=== PATIENT | female | born 1985 | race Caucasian/White ===

== ENCOUNTER 2017-09-17 07:55 | Emergency (ER) | payer OTHER ==
[2017-09-17 08:05] VITALS: RESP 18
[2017-09-17] MEDS ORDERED: Albuterol 0.083% Inhal Sol (2.5 mg/3 mL) UD INH STA (08:36)
--- NOTE | 2017-09-17 08:39 | ED PDOC ---
Arrival/HPI - General Chief Complaint: Flu-like Symptoms Time Seen by Provider: 09/17/17 08:09 Historian: Patient - History of Present Illness Narrative History of Present Illness (Text): 09/17/17 08:30 Ghassan Luna is a 31 year old female, who presents to the emergency department complaining of coughing and throat pain since three days ago. Patient denies chest pain, headache, fever, chills, back pain, nausea, vomiting, diarrhea, abdominal pain, lower extremity pain/swelling, recent travel, or other complaints. Time/Duration: < week Symptom Onset: Gradual Symptom Course: Worsening Past Medical History - Provider Review Nursing Documentation Reviewed: Yes - Infectious Disease Hx of Infectious Diseases: None - Psychiatric Hx Substance Use: No Family/Social History - Physician Review Nursing Documentation Reviewed: Yes Family/Social History: Unknown Family HX Smoking Status: Never Smoked Hx Alcohol Use: No Hx Substance Use: No Allergies/Home Meds Allergies/Adverse Reactions: Allergies No Known Allergies Allergy (Verified 09/17/17 08:03) Review of Systems - Physician Review All systems were reviewed & negative as marked: Yes - Review of Systems ENT: Sore Throat Respiratory: Cough, Sputum Cardiovascular: absent: Chest Pain Gastrointestinal: absent: Abdominal Pain Physical Exam Vital Signs Reviewed: Yes Vital Signs Temp Pulse Resp BP Pulse Ox 09/17/17 08:04 99.5 F 101 H 18 118/74 100 Temperature: Afebrile Pulse: Tachycardic Respiratory Rate: Normal Appearance: Positive for: Well-Appearing, Non-Toxic, Comfortable Pain Distress: None Mental Status: Positive for: Alert and Oriented X 3 - Systems Exam Head: Present: Atraumatic, Normocephalic Pupils: Present: PERRL Extroacular Muscles: Present: EOMI Conjunctiva: Present: Normal Mouth: Present: Moist Mucous Membranes Pharnyx: No: EXUDATE Nose (Internal): Present: Other (post nasal drip) Neck: Present: Normal Range of Motion Respiratory/Chest: Present: Good Air Exchange, Other (congested on left side). No: Clear to Auscultation, Respiratory Distress, Accessory Muscle Use Cardiovascular: Present: Regular Rate and Rhythm, Normal S1, S2. No: Murmurs Abdomen: Present: Normal Bowel Sounds. No: Tenderness, Distention, Peritoneal Signs, Rebound, Guarding Lower Extremity: Present: Normal Inspection, NORMAL PULSES, Normal ROM. No: Edema, Cyanosis, Tenderness, Swelling, Deformity Neurological: Present: GCS=15, CN II-XII Intact, Speech Normal Skin: Present: Warm, Dry, Normal Color. No: Rashes Psychiatric: Present: Alert, Oriented x 3, Normal Insight, Normal Concentration Medical Decision Making ED Course and Treatment: 09/17/17 Impression: 31 year old female with post nasal drip and congestion on left side of lung complaining of cough and sore throat for the past 3 days. Plan: -- Chest X-ray -- Labs -- Albuterol -- Urinalysis -- Reassess and disposition Progress Notes: - Lab Interpretations Lab Results: Lab Results 09/17/17 08:57: Influenza Typ A,B (EIA) Pos for influenza a H I have reviewed the lab results: Yes - RAD Interpretation Radiology Orders: 09/17/17 08:35 CHEST PORTABLE [RAD] Stat Fire Warden: Radiologist - Medication Orders Current Medication Orders: Discontinued Medications Albuterol Sulfate (Albuterol 0.083% Inhal Cristy (2.5 Mg/3 Ml) Ud) 2.5 mg INH STAT STA Stop: 09/17/17 08:37 Last Admin: 09/17/17 09:04 Dose: 2.5 mg - Scribe Statement The provider has reviewed the documentation as recorded by the [facility] Provider Scribe Attestation: All medical record entries made by the Scribe were at my direction and personally dictated by me. I have reviewed the chart and agree that the record accurately reflects my personal performance of the history, physical exam, medical decision making, and the department course for this patient. I have also personally directed, reviewed, and agree with the discharge instructions and disposition. Disposition/Present on Arrival - Present on Arrival Any Indicators Present on Arrival: No History of DVT/PE: No History of Uncontrolled Diabetes: No Urinary Catheter: No History of Decub. Ulcer: No History Surgical Site Infection Following: None - Disposition Have Diagnosis and Disposition been Completed?: Yes Diagnosis: Influenza A Disposition: HOME/ ROUTINE Disposition Time: 10:30 Patient Plan: Discharge Condition: STABLE Additional Instructions: Plenty of fluids. Tylenol every 4 hours. Dayquil for congestion during the daytime hours. Return to ER for inability to hold oral intake. Prescriptions: Oseltamivir Phosphate [Tamiflu] 75 mg PO BID #10 capsule Promethazine DM [Phenergan DM Syrup] 10 ml PO TID PRN #120 ml PRN Reason: Cough Referrals: PCP,NO [Primary Care Provider] - Follow up with primary Forms: [employer] ([place]ian), WORK NOTE
--- NOTE | 2017-09-17 10:28 | RAD ---
HISTORY: cough COMPARISON: No prior. FINDINGS: LUNGS: No active pulmonary disease. PLEURA: No significant pleural effusion identified, no pneumothorax apparent. CARDIOVASCULAR: Normal. OSSEOUS STRUCTURES: No significant abnormalities. VISUALIZED UPPER ABDOMEN: Normal. OTHER FINDINGS: None. IMPRESSION: No active disease.
[2017-09-17 11:43] VITALS: BP 124/78; PULSE 90; TEMP 99.2; O2SAT 99
== END 2017-09-17 11:34 | disposition home or self-care (01) ==
LOC: ED 07:55
DX: J10.1 Influenza due to other identified influenza virus with other respiratory manifestations (principal)